=== PATIENT | male | born 1935 | race Caucasian/White ===

== ENCOUNTER → 2021-09-06 | Day surgery (SDC) | payer MEDICARE ==
[~2021-09-06] VITALS: Ht 175.3 cm; Wt 87.8 kg
[~2021-09-06] MED LIST: ACETAMINOPHEN500 M1 PO; AMLODIPINE-BEN1 EAC4 PO; BENAZEPRIL HCL20 MG PO; JANTOVEN2.5 MG PO; NORCO 5-325 TA1 EACH PO; NORVASC5 MG PO; SYNTHROID25 MCG PO
[2021-09-06 10:21] LABS: HGB 12.8 g/dl (13.2-18.0); MCH 32.3 pg (25.0-31.0); MCHC 33.7 g/dL (32.0-36.0); MPV 9.8 fL (6.0-9.5); RBC 3.96 M/uL (4.70-6.00); RDW 13.2 % (11.5-14.0); WBC 8.3 K/uL (4.0-10.5)
[2021-09-06 10:39] LABS: ALBUMIN 3.9 g/dL (3.4-5.0); BILIRUBIN - TOTAL 0.4 mg/dL (0.2-1.0); BUN/CREAT RATIO (CALC) 19.5 RATIO; CREATININE 1.23 mg/dL (0.67-1.17); POTASSIUM 4.9 mmol/L (3.5-5.1); TOTAL PROTEIN 7.9 g/dL (6.4-8.2)
== END | disposition home or self-care (01) ==
LOC: FAS 08:51
PROVIDERS: Surgery
DX: K91.30 Postprocedural intestinal obstruction, unspecified as to partial versus complete (principal); K57.30 Diverticulosis of large intestine without perforation or abscess without bleeding; E03.9 Hypothyroidism, unspecified; Z90.49 Acquired absence of other specified parts of digestive tract; Z95.0 Presence of cardiac pacemaker; Z85.038 Personal history of other malignant neoplasm of large intestine; Z96.659 Presence of unspecified artificial knee joint; Z79.01 Long term (current) use of anticoagulants
CPT/HCPCS: 36415; 80053; J2370; J2704; J7120